=== PATIENT | male | born 1980 | race Caucasian/White ===

== ENCOUNTER 2021-09-18 09:35 | Emergency (ER) | payer MEDICAID, SELFPAY ==
[2021-09-18 09:36] VITALS: BP 119/85; PULSE 94; RESP 14; TEMP 36.5; O2SAT 99; BMI 23.8
--- NOTE | 2021-09-18 10:08 | EX.ED.UPPERE ---
HPI History of Present Illness Chief Complaint: Upper Extremity Injury Informant: patient Onset/Context/Timing Onset: Days (3) Context: Gradual Onset Timing: Continuous Quality of Pain: Aching and - (Pressure) Location: Left shoulder Worsened by: Movement Relieved by: Laying on left side Associated Symptoms Associated Symptoms: Negative for Parasthesia and Weakness Narrative Narrative: Patient presents with left shoulder pain that has been getting worse over the past 3 days. Patient states it is gradually getting worse. Patient denies any trauma or injury. Patient states pain is over the anterior aspect of the left shoulder as well as along the left trapezius muscle. Patient describes the pain as aching and pressure. Patient states pain is worse with movement. Patient states the pain is better whenever he lays on his left side. Patient denies any paresthesias or weakness. PFSH [facility] Medical History History of back pain Home Medications naproxen 500 mg PO BID PRN #20 tab 09/18/21 [Rx Last Taken Unknown] Allergy/AdvReac Type Severity Reaction Status Date / Time No Known Allergies Allergy Verified 09/18/21 09:38 Surgical History no surgical history no surgical history Social History Smoking Status: Never smoker ROS ROS ED Constitutional Constitutional ED: Denies chills or fever(s) Eyes Eyes: Denies blurry vision or change in vision ENT ENT ED: Denies rhinorrhea or sore throat Cardiovascular Cardiovascular: Denies chest pain or palpitations Respiratory/Chest Respiratory/Chest: Denies cough or dyspnea Gastrointestinal Gastrointestinal: Denies nausea or vomiting Genitourinary Genitourinary ED: Denies dysuria or hematuria Musculoskeletal Musculoskeletal: Denies back pain or neck pain Integumentary Denies abscess or rash Neurologic Neurologic: Denies headache(s) or weakness Allergic/Immunologic Allergic/Immunologic ED: Denies mouth swelling or urticaria EXAM Physical Exam Const Vital Signs: 09/18/21 09:36 Temperature 97.7 F L Temperature Source Temporal Pulse Rate 94 Respiratory Rate 14 Blood Pressure 119/85 H Blood Pressure Mean 96 Pulse Ox 99 Oxygen Delivery Method Room Air Positive well nourished and well developed General Appearance ED: well developed and NAD HEENT Reports moist mucous membranes Neck full ROM and supple Extremity Extremity Narrative: There is tenderness over the anterior aspect of the left shoulder. There is no tenderness along the clavicle. There is some mild tenderness over the acromioclavicular joint. There is no edema or ecchymosis. There is no obvious deformity. Range of motion was limited in flexion, abduction, and external rotation secondary to pain. Radial pulses are equal bilaterally. Sensation was intact to light touch in the radial, median, ulnar, and axillary areas. Strength is 5/5 in the radial, median, and ulnar areas. Neuro oriented x3, CN's II-XII intact bilaterally, moves all extremities, no focal motor deficits and no sensory deficits noted Sensorium / Orientation: alert Motor Exam: strength 5/5 throughout Psych mental status grossly normal MDM MDM MDM Narrative Medical decision making narrative: Patient was given a dose of [place] here. X-rays of the left shoulder were obtained. There are 4 views. On my interpretation, there is no acute fracture. There is no dislocation. There is no soft tissue swelling. Radiologist also interpreted the x-rays and agrees. Patient was advised of his findings. Patient was given a prescription for Naprosyn to take as needed for pain. Patient was instructed to use ice to the area. Patient was instructed to do range of motion exercises. Patient was instructed to follow-up with his primary care physician in 5 to 7 days. Patient understood and was agreeable with the plan. All questions were answered. Discharge Plan Triage Chief Complaint: Upper Extremity Injury ED Provider: Tramaine Briseno Dx/Rx/DC Orders Clinical Impression: Muscle strain of left shoulder region Instructions: ED Shoulder Sprain Prescriptions: New naproxen 500 MG tablet 500 mg PO BID PRN Qty: 20 RF: 0 Primary Care Provider: Care Physician,No Primary Referrals: Francesco Rangel MD [STAFF PHYSICIAN] - 5-7 Days Care Physician,No Primary [Primary Care Provider] - Disposition Disposition: Home, Self Care
--- NOTE | 2021-09-18 10:14 | RAD_ITS ---
STUDY: X-RAY - LEFT SHOULDER REASON FOR EXAM: Male, 41 years old. Injury/Pain TECHNIQUE: 4 view(s) of the shoulder. COMPARISON: None. FINDINGS: Normal glenohumeral articulation. Normal acromioclavicular joint. Normal acromion. Normal humeral head and visualized proximal humerus. The soft tissue structures are unremarkable. Normal visualized pulmonary apex. RAD/Shoulder min 2 Views IMPRESSION: Normal x-ray examination of the shoulder. Electronically Signed: Ivan Mariano MD at 10:42 EDT ,
[2021-09-18] MEDS: HYDROcodone Bitartrate/Apap 5/325 Tablet PO (10:20)
[2021-09-18 11:04] VITALS: PULSE 89; RESP 17; O2SAT 99
== END 2021-09-18 11:05 | disposition home or self-care (01) ==
PROVIDERS: Emergency Provider Emergency Medicine; Visit Provider Emergency Medicine
DX: S46.912A Strain of unspecified muscle, fascia and tendon at shoulder and upper arm level, left arm, initial encounter (principal); X58.XXXA Exposure to other specified factors, initial encounter; Y93.9 Activity, unspecified; Y99.9 Unspecified external cause status; Y92.9 Unspecified place or not applicable
CPT/HCPCS: 73030; 99283